=== PATIENT | female | born 1965 | race Caucasian/White ===

== ENCOUNTER 2017-04-09 14:37 | Emergency (ER) | payer BC ==
[~2017-04-09] VITALS: Ht 165.1 cm; Wt 79.1 kg
[~2017-04-09 14:37] MED LIST: ACETAMINOPHEN-1 EAC1 PO; COBAL-10001000 MCG/2 IM; CYCLOBENZAPRINE10 M1 PO; LIDODERM 5% P1 PATCH TD; Levothroid,Synthroid PO; PRINIVIL5 MG PO; SYNTHROID100 MCG PO; Zestril,Prinivil PO
[2017-04-09 16:54] LABS: HEMATOCRIT 43.2 % (36.0-46.0); MCH 32.1 PG (29.0-34.0); MCHC 34.3 G/DL (30.0-36.0); MCV 93.7 FL (83-99); MEAN PLAT.VOLUME 9.6 uM^3 (9.5-12.4); PLATELET COUNT 246 K/uL (156-360); RBC DIS.WIDTH-CV 12.8 % (11.8-14.6); RED BLOOD COUNT 4.61 M/uL (3.80-5.20); WHITE BLOOD COUNT 6.2 K/uL (4.1-10.2)
[2017-04-09 17:01] LABS: CHLORIDE 107 mEq/L (99-109); POTASSIUM 4.9 mEq/L (3.7-5.4); SODIUM 144 mEq/L (136-147)
[2017-04-09 17:04] LABS: GLUCOSE 106 mg/dL (70-99)
[2017-04-09 17:05] LABS: ADD MIUA? NO; BILIRUBIN NEGATIVE; BLOOD NEGATIVE; COLOR STRAW ((YELLOW)); GLUCOSE (STRIP) NEGATIVE; KETONES NEGATIVE; LEUKOCYTES NEGATIVE; NITRITE NEGATIVE; PROTEIN (STRIP) NEGATIVE; SPECIFIC GRAVITY 1.004 (1.000-1.030); UROBILINOGEN 0.2 MG/DL (0.2-1.0)
[2017-04-09 17:05] LABS: ANION GAP 11 MEQ/L (2-14)
[2017-04-09 17:06] LABS: TOTAL BILIRUBIN 1.1 mg/dL (0.0-1.0)
[2017-04-09 17:07] LABS: ALKALINE PHOSPHATASE 118 IU/L (3-129); SERUM ETHYL ALCOHOL < 10 mg/dL
[2017-04-09 17:08] LABS: GFR ESTIMATE (CALCULATED) > 59 mL/min/
[2017-04-09 17:09] LABS: UREA NITROGEN (BUN) 13 mg/dL (9-23)
[2017-04-09 17:15] LABS: AMPHETAMINE NEGATIVE (500 ng/mL); BARBITURATES NEGATIVE (200 ng/mL); BENZODIAZEPINES NEGATIVE (150 ng/mL); COCAINE NEGATIVE (150 ng/mL); INTERNAL CONTROLS VALID? YES; METHADONE NEGATIVE (200 ng/mL); METHAMPHETAMINE NEGATIVE (500 ng/mL); OPIATES (MORPHINE) NEGATIVE (100 ng/mL); OXYCODONE NEGATIVE (100 ng/mL); PHENCYCLIDINE NEGATIVE (25 ng/mL); PROPOXYPHENE NEGATIVE (300 ng/mL); THC CANNABINOIDS NEGATIVE (50 ng/mL); TRICYCLIC ANTIDEPRESSANTS NEGATIVE (300 ng/mL)
[2017-04-09 18:44] VITALS: BP 142/81
== END 2017-04-09 18:46 | disposition home or self-care (01) ==
LOC: EME 14:37
PROVIDERS: Emergency Medicine
DX: F43.23 Adjustment disorder with mixed anxiety and depressed mood (principal); F10.10 Alcohol abuse, uncomplicated; Z63.5 Disruption of family by separation and divorce; E03.9 Hypothyroidism, unspecified
CPT/HCPCS: 80053; 81003; 85027; 90839; 99281; 99285; G0480; Q0177

== ENCOUNTER 2018-03-27 15:07 | Emergency (ER) | payer BC ==
[~2018-03-27] VITALS: Ht 165.1 cm; Wt 72.2 kg
[2018-03-27 15:50] LABS: APPEARANCE CLEAR ((CLEAR)); BILIRUBIN NEGATIVE; BLOOD NEGATIVE; COLOR YELLOW ((YELLOW)); GLUCOSE (STRIP) NEGATIVE; KETONES NEGATIVE; LEUKOCYTES NEGATIVE; NITRITE NEGATIVE; PROTEIN (STRIP) NEGATIVE; SPECIFIC GRAVITY 1.008 (1.000-1.030); UROBILINOGEN 0.2 MG/DL (0.2-1.0)
[2018-03-27 16:00] LABS: AMPHETAMINE NEGATIVE (500 ng/mL); BARBITURATES NEGATIVE (200 ng/mL); BENZODIAZEPINES NEGATIVE (150 ng/mL); BUPRENORPHINE NEGATIVE (10 ng/mL); COCAINE NEGATIVE (150 ng/mL); METHADONE NEGATIVE (200 ng/mL); METHAMPHETAMINE NEGATIVE (500 ng/mL); OPIATES (MORPHINE) NEGATIVE (100 ng/mL); OXYCODONE NEGATIVE (100 ng/mL); PHENCYCLIDINE NEGATIVE (25 ng/mL); PROPOXYPHENE NEGATIVE (300 ng/mL); THC CANNABINOIDS NEGATIVE (50 ng/mL); TRICYCLIC ANTIDEPRESSANTS NEGATIVE (300 ng/mL)
[2018-03-27 16:14] LABS: HEMATOCRIT 43.1 % (36.0-46.0); HEMOGLOBIN 14.8 G/DL (11.9-15.5); MCH 31.9 PG (29.0-34.0); MCHC 34.3 G/DL (30.0-36.0); MCV 92.9 FL (83-99); PLATELET COUNT 278 K/uL (156-360); RBC DIS.WIDTH-CV 12.3 % (11.8-14.6); RBC DIS.WIDTH-SD 42.3 % (39-53); RED BLOOD COUNT 4.64 M/uL (3.80-5.20); WHITE BLOOD COUNT 4.1 K/uL (4.1-10.2)
[2018-03-27 16:22] LABS: ALBUMIN 4.4 g/dL (3.2-4.8); CHLORIDE 107 mEq/L (99-109); POTASSIUM 4.5 mEq/L (3.7-5.4); SODIUM 145 mEq/L (136-147)
[2018-03-27 16:25] LABS: GLUCOSE 96 mg/dL (70-99); TOTAL PROTEIN 7.8 g/dL (6.4-8.3)
[2018-03-27 16:26] LABS: TOTAL BILIRUBIN 0.5 mg/dL (0.0-1.0)
[2018-03-27 16:27] LABS: SERUM ETHYL ALCOHOL 187 mg/dL
[2018-03-27 16:28] LABS: ALKALINE PHOSPHATASE 107 IU/L (3-129); CREATININE 0.9 mg/dL (0.6-1.3); GFR ESTIMATE (CALCULATED) > 59 mL/min/
[2018-03-27 16:29] LABS: UREA NITROGEN (BUN) 12 mg/dL (9-23)
[2018-03-27 16:30] LABS: AST (GOT) 50 IU/L (2-34)
[2018-03-27 16:31] LABS: ALT (GPT) 57 IU/L (3-49)
[2018-03-27 16:37] LABS: QUANTITATIVE HCG 4.1 MIU/ML
[2018-03-27 20:23] VITALS: BP 115/65
== END 2018-03-27 20:30 | disposition home or self-care (01) ==
LOC: EME 15:07
PROVIDERS: Emergency Medicine
DX: F10.20 Alcohol dependence, uncomplicated (principal); F43.23 Adjustment disorder with mixed anxiety and depressed mood; Y90.6 Blood alcohol level of 120-199 mg/100 ml; Z04.6 Encounter for general psychiatric examination, requested by authority; Z98.84 Bariatric surgery status; Z88.8 Allergy status to other drugs, medicaments and biological substances
CPT/HCPCS: 80053; 81003; 84702; 85027; 90837; 99281; 99285; G0480; Q0177